=== PATIENT | male | born 1950 | race Caucasian/White ===

== ENCOUNTER 2021-08-29 09:40 | Day surgery (SDC) | payer MEDICARE, BC ==
[2021-08-28 14:38] VITALS: BMI 29.5
[~2021-08-29 09:40] MED LIST: EPINEPHrine 0.3 MG in Ophthalmic Irrigation Solution 500 ML IRR SCH
[2021-08-29] MEDS ORDERED: Cyclopentolate 1% Opth Drop 2 ML BOT ONE (10:10)
[2021-08-29] MEDS ORDERED: Phenylephrine 2.5% Ophth Soln 5 ML BOT ONE (10:10)
[2021-08-29] MEDS ORDERED: Fentanyl 250 MCG/5 ML VIAL ONE (11:23)
[2021-08-29] MEDS ORDERED: Midazolam HCl 2 mg/2 ml Vial ONE (11:23)
[2021-08-29] MEDS ORDERED: PROPOFOL 200 MG/20 ML VIAL ONE (11:27)
[2021-08-29] MEDS ORDERED: Maxitrol 0.1% Opth Oint 3.5 GM TUBE ONE (11:27)
[2021-08-29] MEDS ORDERED: Bupivacaine 0.75% 10 ML VIAL ONE (11:27)
[2021-08-29] MEDS ORDERED: Lidocaine 4% PF 5 ML AMP ONE (11:27)
[2021-08-29] MEDS ORDERED: Lidocaine 1% PF 5 ML VIAL ONE (11:27)
[2021-08-29] MEDS ORDERED: CEFAZOLIN 1 GM VIAL ONE (11:27)
[2021-08-29] MEDS ORDERED: Triamcinolone 40 MG/ML VIAL ONE (11:27)
== END 2021-08-29 12:50 | disposition home or self-care (01) ==
LOC: SDC 09:40
PROVIDERS: ATTEND Ophthalmology Retina Specialist
PROC: 08T43ZZ Resection of Right Vitreous, Percutaneous Approach (ICD-10-PCS; principal; 2021-08-29)
PROC: 08QE3ZZ Repair Right Retina, Percutaneous Approach (ICD-10-PCS; 2021-08-29)
DX: H43.11 Vitreous hemorrhage, right eye (principal); I10 Essential (primary) hypertension; E03.9 Hypothyroidism, unspecified; M19.90 Unspecified osteoarthritis, unspecified site; Z79.1 Long term (current) use of non-steroidal anti-inflammatories (NSAID); Z79.890 Hormone replacement therapy; Z79.899 Other long term (current) drug therapy
CPT/HCPCS: J0171; J0690; J2250; J2704; J3010; J3301; J3490